=== PATIENT | female | born 1985 | race Caucasian/White ===

== ENCOUNTER → 2018-09-19 | Outpatient (CLI) | payer BC ==
--- NOTE | 2018-09-19 14:55 | Diagnostic Imaging Report ---
INDICATION: survey. TECHNIQUE: Multiple real-time grayscale images were obtained over the gravid uterus. COMPARISON: None. FINDINGS: There is a single live fetus in a cephalic presentation. heart rate was recorded at 139 beats per minute. Placenta is posterior. The amniotic fluid volume is normal. Cervical length is approximately 4.4 cm. survey demonstrates kidneys, bladder and stomach to be unremarkable. The brain is unremarkable. There is a four-chamber heart. There is a three-vessel cord with normal insertion. The spine is unremarkable. Biometrical measurements are as follows: Biparietal 4.75 cm, age 20 weeks 3 days. Head circumference 17.84 cm, age 20 weeks 3 days. Abdominal circumference 14.68 cm, age 20 weeks 0 days. Femur length 3.16 cm, age 19 weeks 6 days. Sonographic estimate age: 20 weeks 2 days. Sonographic estimated date of delivery: 02/04/2019. Estimated Weight: 323 gm (+/- 47 gm). LMP percentile: 13%. heart rate: 139 beats per minute. number: 1 of 1. IMPRESSION: Single live IUP 20 weeks 2 days gestational age. Estimated date of confinement sonographically 02/04/2019. Dictated by: Dictated on workstation # [id number]
== END ==
LOC: RAD 13:19
PROVIDERS: ATTEND Obstetrics & Gynecology
DX: Z36.89 Encounter for other specified antenatal screening (principal); Z3A.20 20 weeks gestation of pregnancy
CPT/HCPCS: 76805

== ENCOUNTER 2018-12-26 07:35 | Inpatient (IN) | payer BC ==
[2018-12-26] VITALS (23 sets, daily range): BP systolic 116–148; BP diastolic 57–96
--- NOTE | 2018-12-26 07:40 | NUR ---
DIGNA OLIVARES presented to unit via ambulation from ED, accompanied by s/o, with c/o ANTEPARTUM BLEEDING, LABOR. DIGNA OLIVARES weighed, gowned, voided, and to bed. EFHM and TOCO applied, VS taken. DIGNA OLIVARES oriented to bed controls, call light, TV, heat, and A/C controls.
[2018-12-26] MEDS ORDERED: LACTATED RINGERS 500 ML IV SCH (09:07)
[2018-12-26] MEDS ORDERED: NIFEdipine 10 MG CAPS (WOMEN'S SERVICES ONLY!!!) PO NR (09:15)
--- NOTE | 2018-12-26 09:27 | History & Physical-OB ---
OB - Chief Complaint & HPI Date/Time Date of Admission: Date of Admission: Date seen by a Provider: Dec 26, 2018 Time Seen by a Provider: 08:45 Chief Complaint/History OB-Reason for Admission/Chief: third trimester bleeding Hx : 1 Hx Para: 0 Gestational Age in Weeks: 34 Gestational Age in Days: 5 Other reason for admission: Presented with complaint of vaginal bleeding. at 34 5/7 weeks with c omplaints of spontaneous, painless bleeding. She has passes small clots, no leakage of fluid. On admission she was noted to be lilliam every 2-5 minutes. She was examined and found to have batsheva blood in the vaginal vault and cervix is dilated. Bedside US shows no evidence of previa. And she is lilliam regularly, though they are not painful. TAMERA is normal (no ROM). she is admitted for tocolysis due to labor and third trimester bleeding. Will start procardia for tocolysis. Betamethasone for lung maturity and ampicillin for GBS prophylaxis. Admission Nurse Assessment Rev: Yes Allergies and Home Medications Allergies Coded Allergies: No Known Drug Allergies (Unverified , 12/26/18) Home Medications Acetaminophen 500 Mg Tablet, 1,000 MG PO Q8HR Prescribed by: ASHLEY DIAZ on 01/11/19 0955 Ibuprofen 600 Mg Tablet, 600 MG PO Q6HR Prescribed by: ASHLEY DIAZ on 01/11/19 0955 Patient Home Medication List Home Medication List Reviewed: No OB - History Hx of Present Ultrasounds: Normal mid trimester US Obstetrical Complications: None Patient Past Medical History NC OB - Admission Exam Physical Exam Heart: Rhythm Normal Lungs: Clear Abdomen: Gravid Extremities: Normal Cervical Dilatation: 1cm Effacement: 75% Station: Ballotable Membranes: Intact Heart Rate: 140's Accelerations: Accelerations Present Decelerations: No Decelerations Short Term Variability: Present Automation Technologist Variability: Average (6-25) Contractions on Admission: < 5 Minutes Apart OB - Assessment/Plan/Diagnosis Assessment Assessment: IUP - , labor, vaginal bleeding Admission Dx labor third trimester bleeding due to #1. 34 5/7 weeks Tocolysis, betamethasone and ampicillin Admission Status: Inpatient Order (span 2 midnights) Reason for Inpatient Admission: labor with tocolysis ASHLEY DIAZ DO Dec 26, 2018 09:27
[2018-12-26] MEDS: AMPICILLIN FOR IV USE 2,000 MG in WATER (STERILE) FOR INJECTION 14.8 ML IV SCH ×2 (09:30→10:00)
[2018-12-26] MEDS ORDERED: BETAMETHASONE ACE/NA PHOS 6 MG/ML (CELESTONE SOLUSPAN) ONE (09:49)
[2018-12-26 09:58] LABS: BASOPHILS % (AUTO) 0 % (0-10); EOSINOPHILS # (AUTO) 0.1 10^3/uL (0.0-0.3); EOSINOPHILS % (AUTO) 1 % (0-10); HEMATOCRIT 35 % (35-52); LYMPHOCYTES # (AUTO) 1.7 X 10^3 (1.0-4.0); LYMPHOCYTES % (AUTO) 16 % (12-44); MEAN CORPUSCULAR HEMOGLOBIN 29 PG (25-34); MEAN CORPUSCULAR HGB CONC 34 G/DL (32-36); MEAN CORPUSCULAR VOLUME 86 FL (80-99); MONOCYTES # (AUTO) 0.8 X 10^3 (0.0-1.0); MONOCYTES % (AUTO) 8 % (0-12); NEUTROPHILS # (AUTO) 8.1 X 10^3 (1.8-7.8); NEUTROPHILS % (AUTO) 76 % (42-75); PLATELET COUNT 129 10^3/uL (130-400); WHITE BLOOD COUNT 10.7 10^3/uL (4.3-11.0)
[2018-12-26] MEDS: D5 LR IV SOLUTION 1,000 ML IV SCH ×2 (10:00→18:10)
--- OUTSIDE RECORDS SUMMARY | 2018-12-26 10:49 | XMS REPORT | Continuity of Care Document ---
Author Organization Unknown Address Unknown Allergies There is no data. Medications There is no data. Problems There is no data. Procedures There is no data. Results There is no data. Encounters ACCT No. Visit Date/Time Discharge Status Pt. Type Provider Facility Loc./Unit Complaint [id number] 10/24/2018 08:20:00 10/24/2018 23:59:59 [facility] Outpatient LEO MOY L[facility]
--- OUTSIDE RECORDS SUMMARY | 2018-12-26 10:49 | XMS REPORT ---
Author Author LYSSA ALEXANDER Organization [employer] Address Unknown Phone Unavailable Care Team Providers Care Building Certifier Name Role Phone LYSSA ALEXANDER CP Unavailable Allergies, Adverse Reactions, Alerts Substance Reaction Event Type N.K.D.A. Info Not Available Non Drug Allergy Problems Problem Type Condition Code Onset Dates Condition Status Assessment Sore throat 462 Active Assessment Strep pharyngitis J02.0 Active Medications Medication Code System Code Instructions Start Date End Date Status Dosage Azithromycin [facility] [address]-52 250 MG Orally Once a day Jun 11, 2015 Jun 16, 2015 2 tablets on the first day, then 1 tablet daily for 4 days Procedures Procedure Coding System Code Date Office Visit, Est Pt., Level 3 CPT-4 81398 Jun 11, 2015 DEPO MEDROL 40 MG/ML CPT-4 J1030 Jun 11, 2015 STREP A ASSAY W/OPTIC CPT-4 19066 Jun 11, 2015 ROCEPHIN 1 GM (IM) CPT-4 J0696 Jun 11, 2015 THER/PROPH/DIAG INJ, SC/IM CPT-4 62114 Jun 11, 2015 Vital Signs Date/Time: Jun 11, 2015 Temperature 98.1 F Weight 140 lbs Height 55.5 in BMI 31.95 Index Blood Pressure Diastolic 74 mmHg Blood Pressure Systolic 120 mmHg Cardiac Monitoring Heart Rate 70 bpm Results No Known Results Summary Purpose [employer] Submission
--- OUTSIDE RECORDS SUMMARY | 2018-12-26 10:49 | XMS REPORT ---
Author Author TENNILLE HOGAN Organization [facility] Address [address] [place] [address] Care Team Providers Care Order Planner Name Role Phone TENNILLE HOGAN Unavailable PROBLEMS No Known Problems ALLERGIES No Information ENCOUNTERS Encounter Location Date Diagnosis [facility] [id number] [place] [address] [id number] Jun, Encounter for immunization Z23 [facility] [id number] [place] [address] [id number] Jul, [facility] Z23 [facility] [id number] [place] [address] [id number] May, Subacute pansinusitis J01.40 and Cough R05 [facility] [id number] [place] [id number] Apr, Acute upper respiratory infection, unspecified J06.9 ; Other viral agents as the cause of diseases classified elsewhere B97.89 ; Cough R05 and Dyspnea on exertion R06.09 [facility] [id number] [place] [address] [id number] Sep, Pharyngitis, unspecified etiology J02.9 [facility] [id number] [place] [phone] Jun, Strep pharyngitis J02.0 and Sore throat 462 IMMUNIZATIONS Vaccine Route Administration Date Status FLULAVAL QUAD 0.5ML (6 MO AND UP) 2018 IM Intramuscular Jun 13, 2018 Administered SOCIAL HISTORY Never Assessed REASON FOR VISIT Flu shot STeposte [facility] PLAN OF CARE VITAL SIGNS MEDICATIONS Unknown Medications RESULTS No Results PROCEDURES Procedure Date Ordered Result Body Site FLULAVAL QUAD 0.5ML (6 MO AND UP) 2018 Jun 13, 2018 SINGLE IMMUNIZATION ADMIN Jun 13, 2018 INSTRUCTIONS MEDICATIONS ADMINISTERED No Known Medications MEDICAL (GENERAL) HISTORY Type Description Date Surgical History incision and drainage abscess--spider bite 2015
--- OUTSIDE RECORDS SUMMARY | 2018-12-26 10:49 | XMS REPORT ---
Author Author MIKAELA ASKEW Organization [facility] Address [address] [place] [address] Care Team Providers Care Water Treatment Plant Operator Name Role Phone QUINNTOSHIA MIKAELA Unavailable PROBLEMS No Known Problems ALLERGIES No Known Allergies ENCOUNTERS Encounter Location Date Diagnosis [facility] [id number] [place] [address] [id number] Jul, Encounter for immunization Z23 [facility] [id number] [place] [address] [id number] May, Subacute pansinusitis J01.40 and Cough R05 [facility] [address] [phone] Apr, Acute upper respiratory infection, unspecified J06.9 ; Other viral agents as the cause of diseases classified elsewhere B97.89 ; Cough R05 and Dyspnea on exertion R06.09 [facility] [id number] [place] [address] [phone] Sep, Pharyngitis, unspecified etiology J02.9 [facility] [id number] [place] [phone] Jun, Strep pharyngitis J02.0 and Sore throat 462 IMMUNIZATIONS No Known Immunizations SOCIAL HISTORY Never Assessed [facility] Activity Details Follow Up prn Reason: VITAL SIGNS Height 55.5 in 2017-05-10 Weight 138.2 lbs 2017-05-10 Temperature 98.2 degrees Fahrenheit 2017-05-10 Heart Rate 59 bpm 2017-05-10 Respiratory Rate 18 2017-05-10 Oximetry 100 % 2017-05-10 BMI 31.54 kg/m2 2017-05-10 Blood pressure systolic 121 mmHg 2017-05-10 Blood pressure diastolic 70 mmHg 2017-05-10 MEDICATIONS Medication Instructions Dosage Frequency Start Date End Date Duration Status Nidia Perles 100 mg Orally Three times a day prn cough 1-2 capsule as needed Apr, May, 07 days Active Flovent HFA 220 MCG/ACT Inhalation Twice a day 1 puff 12h Apr, May, 10 days Active RESULTS No Results PROCEDURES Procedure Date Ordered Result Body Site MEASURE BLOOD OXYGEN LEVEL May 10, 2017 INSTRUCTIONS MEDICATIONS ADMINISTERED No Known Medications MEDICAL (GENERAL) HISTORY Type Description Date Surgical History incision and drainage abscess--spider bite 2014
--- OUTSIDE RECORDS SUMMARY | 2018-12-26 10:49 | XMS REPORT ---
Author Author MIKAELA Sands Organization [facility] Address [address] [place] [address] Care Team Providers Care Cost Estimating Manager Name Role Phone MIKAELA Sands Unavailable PROBLEMS No Known Problems ALLERGIES No Information ENCOUNTERS Encounter Location Date Diagnosis [facility] [id number] [place] [address] [id number] Jul, Encounter for immunization Z23 [facility] [address] [id number] May, Subacute pansinusitis J01.40 and Cough R05 [facility] [place] [address] [id number] Apr, Acute upper respiratory infection, unspecified J06.9 ; Other viral agents as the cause of diseases classified elsewhere B97.89 ; Cough R05 and Dyspnea on exertion R06.09 [facility] [place] [id number] [place] [phone] Sep, Pharyngitis, unspecified etiology J02.9 [facility] [id number] [place] [phone] Jun, Strep pharyngitis J02.0 and Sore throat 462 IMMUNIZATIONS Vaccine Route Administration Date Status FLUARIX QUAD (3 AND UP) 2016 IM Intramuscular Aug 09, 2017 Administered SOCIAL HISTORY Never Assessed REASON FOR VISIT Flu Vaccine-[facility]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
--- NOTE | 2018-12-26 11:57 | NUR ---
resting quietly. cheeks and legs flushed patient reports feeling slightly shaking. s/o at bedside. efm reapplied after spontaneous void . denies further need. reviewed next scheduled dose of procardia with patient and family. verbalized understanding. vitals taken. a/ox3 continuing to monitor expectantly.
--- NOTE | 2018-12-26 13:05 | NUR ---
dr jc notified of contraction/fhr pattern , new orders received.
[2018-12-26] MEDS: NIFEdipine 10 MG CAPS (WOMEN'S SERVICES ONLY!!!) PO SCH ×3 (14:25→22:42)
[2018-12-26] MEDS: AMPICILLIN FOR IV USE 1,000 MG in WATER (STERILE) FOR INJECTION 7.4 ML IV SCH ×3 (14:25→22:42)
[2018-12-27] VITALS (13 sets, daily range): BP systolic 113–131; BP diastolic 58–71
[2018-12-27] MEDS: D5 LR IV SOLUTION 1,000 ML IV SCH ×2 (01:05→10:30)
[2018-12-27] MEDS: NIFEdipine 10 MG CAPS (WOMEN'S SERVICES ONLY!!!) PO SCH ×3 (03:07→11:45)
[2018-12-27] MEDS: AMPICILLIN FOR IV USE 1,000 MG in WATER (STERILE) FOR INJECTION 7.4 ML IV SCH ×4 (03:07→15:30)
[2018-12-27] MEDS ORDERED: BETAMETHASONE ACE/NA PHOS 6 MG/ML (CELESTONE SOLUSPAN) IM SCH (09:00)
--- NOTE | 2018-12-27 13:15 | Diagnostic Imaging Report ---
INDICATION: Bleeding. TECHNIQUE: Multiple real-time grayscale images were obtained over the gravid uterus. COMPARISON: 09/19/2018. FINDINGS: There is a single live fetus in a cephalic presentation. heart rate was recorded at 144 beats per minute. Placenta is posterior. No retroplacental fluid collection is seen. Amniotic fluid index is 8.6 cm. Biophysical profile was also performed with overall score of 6/8. 2-point deduction was given for lack of breathing movements visualized. Biometrical measurements are as follows: Biparietal 73.98 cm, age 32 weeks 1 days. Head circumference 30.34 cm, age 33 weeks 6 days. Abdominal circumference 28.88 cm, age 33 weeks 0 days. Femur length 6.16 cm, age 32 weeks 0 days. Sonographic estimate age: 32 weeks 6 days. Sonographic estimated date of delivery: 02/15/19. Estimated Weight: 2014 gm (+/- 294 gm). LMP percentile: 5%. heart rate: 144 beats per minute. number: 1 of 1. IMPRESSION: 1. Single live IUP at approximately 33 weeks gestational age showing normal interval growth when compared with prior exam. No definite complicating feature is detected. 2. Biophysical profile score is 6/8. Dictated by: Dictated on workstation # [id number]
--- NOTE | 2018-12-27 15:47 | Progress Note-Standard ---
Standard Progress Note Progress Notes/Assess & Plan Time Seen by a Provider: 14:00 Progress/Assessment & Plan Has received betamethasone x 2. Has not had further bleeding. Will plan discha rge with instructions. Contractions have stopped. Did have some redness of the lower extremities which is common with procardia. Final Diagnosis labor at 34 5/7 weeks Third trimester bleeding ASHLEY DIAZ DO Dec 27, 2018 15:47
--- NOTE | 2018-12-27 17:03 | Discharge Inst-Women's Service ---
Discharge Inst-Women's Serv Depart Medication/Instructions New, Converted or Re-Newed RX: Other (No new prescriptions) Final Diagnosis labor third trimester bleeding Consults/Follow Up Additional Follow Up: Yes (as scheduled) Activity Activity: Bedrest (modified) Driving Instructions: You May Drive NO SMOKING: NO SMOKING Nothing Inside Vagina: No Douching, No [place], No Tampons Diet Discharge Diet: No Restrictions Symptoms to Report to : Swelling Increased, Bleeding Excessive, Fever Over 101 Degrees F, Vaginal Bleeding Increase, Vaginal Discharge Foul Labor instructions given For Any Problems or Questions: Contact Your Physician Skin/Wound Care Bathing Instructions: ASHLEY Deleon DO Dec 27, 2018 17:03
--- NOTE | 2018-12-27 17:40 | NUR ---
out of WS via w/c accompanied by staff and s/o. to home self care. with d/c instructions in hand . no s/s of distress noted.
--- NOTE | 2019-01-01 11:31 | Physician Query-Final Dx ---
DEMETRIUS CHAKRABORTY 01/01/19 1131: Final Diagnosis Give Final Diagnosis Please give Final Diagnosis ASHLEY DIAZ DO 01/17/19 1711: Final Diagnosis Give Final Diagnosis 34 week gestation Third trimester bleeding labor DEMETRIUS CHAKRABORTY Jan 01, 2019 11:31 ASHLEY DIAZ DO Jan 17, 2019 17:11
== END 2018-12-27 17:41 | disposition home or self-care (01) | DRG 831 ==
LOC: WSo 07:35 → LDRP 07:36 → WSo 09:11
PROVIDERS: ADMIT Obstetrics & Gynecology; ATTEND Obstetrics & Gynecology
DX: O46.93 Antepartum hemorrhage, unspecified, third trimester (principal); O60.03 Preterm labor without delivery, third trimester; Z3A.34 34 weeks gestation of pregnancy
CPT/HCPCS: 36415; 76805; 76819; 85025; 86850; 86900; 86901

== ENCOUNTER 2019-01-09 23:18 | Inpatient (IN) | payer BC ==
[~2019-01-09] VITALS: Ht 167.6 cm; Wt 81.6 kg
--- NOTE | 2019-01-09 23:18 | NUR ---
DIGNA OLIVARES presented to unit via WC from ED, accompanied by SO , with c/o CONTRACTIONS,WATER BROKE. DIGNA OLIVARES weighed, gowned, voided, and to bed. EFHM and TOCO applied, VS taken. DIGNA OLIVARES oriented to bed controls, call light, TV, heat, and A/C controls.
[2019-01-09] MEDS ORDERED: PREN1TAB79 PO (23:20)
[2019-01-09 23:25] VITALS: BP 173/99
[2019-01-09] MEDS ORDERED: OXYTOCIN/NORMAL SALINE 500 ML IV ONE (23:29)
[2019-01-09] MEDS ORDERED: WATER (STERILE) FOR INJECTION 20 ML ONE (23:30)
[2019-01-09] MEDS ORDERED: AMPICILLIN FOR IV USE 2,000 MG VIAL ONE (23:30)
[2019-01-09] MEDS ORDERED: D5 LR IV SOLUTION 1,000 ML IV SCH (23:31)
[2019-01-09] MEDS ORDERED: AMPICILLIN FOR IV USE 2,000 MG in WATER (STERILE) FOR INJECTION 14.8 ML IV SCH (23:31)
[2019-01-09] MEDS ORDERED: LIDOCAINE/EPI 2% 1:200,00 (XYLOCAINE) 10 ML VIAL ONE (23:43)
[2019-01-09] MEDS ORDERED: LIDOCAINE/EPI 1%-1:200,000 (XYLOCAINE) 10 ML VIAL INJ ONE (23:45)
[2019-01-09] MEDS ORDERED: MINERAL OIL CONCENTRATE 99.9% 15 ML UDC TOP PRN (23:45)
--- OUTSIDE RECORDS SUMMARY | 2019-01-09 23:46 | XMS REPORT | Continuity of Care Document ---
Author Organization Unknown Address Unknown Allergies There is no data. Medications There is no data. Problems There is no data. Procedures There is no data. Results There is no data. Encounters ACCT No. Visit Date/Time Discharge Status Pt. Type Provider Facility Loc./Unit Complaint [id number] 10/24/2018 08:20:00 10/24/2018 23:59:59 [facility] Outpatient [facility]Y [facility]
[2019-01-09 23:54] LABS: BASOPHILS % (AUTO) 0 % (0-10); EOSINOPHILS # (AUTO) 0.1 10^3/uL (0.0-0.3); EOSINOPHILS % (AUTO) 1 % (0-10); HEMATOCRIT 36 % (35-52); HEMOGLOBIN 12.4 G/DL (11.5-16.0); LYMPHOCYTES # (AUTO) 2.1 X 10^3 (1.0-4.0); LYMPHOCYTES % (AUTO) 13 % (12-44); MEAN CORPUSCULAR HEMOGLOBIN 30 PG (25-34); MEAN CORPUSCULAR HGB CONC 35 G/DL (32-36); MEAN CORPUSCULAR VOLUME 85 FL (80-99); MONOCYTES # (AUTO) 1.6 X 10^3 (0.0-1.0); MONOCYTES % (AUTO) 10 % (0-12); NEUTROPHILS # (AUTO) 12.3 X 10^3 (1.8-7.8); NEUTROPHILS % (AUTO) 76 % (42-75); PLATELET COUNT 156 10^3/uL (130-400); WHITE BLOOD COUNT 16.1 10^3/uL (4.3-11.0)
[2019-01-09 23:55] VITALS: BP 160/97
[2019-01-10] VITALS (11 sets, daily range): BP systolic 126–162; BP diastolic 64–89
[2019-01-10] MEDS ORDERED: OXYTOCIN/NORMAL SALINE 500 ML IV SCH (00:46)
--- NOTE | 2019-01-10 00:53 | History & Physical-OB ---
OB - Chief Complaint & HPI Date/Time Date of Admission: Date of Admission: Jan 09, 2019 at 23:29 Date seen by a Provider: Jan 10, 2019 Time Seen by a Provider: 12:25 Chief Complaint/History OB-Reason for Admission/Chief: Rupture of Membranes Hx : 1 Hx Para: 0 Expected Date of Delivery: Feb 01, 2019 Gestational Age in Weeks: 36 Gestational Age in Days: 6 Other reason for admission: Presents with complaint of SROM at 10:44 pm. Arrived in activ labor. GBS unknown (not done yet due to history of labor and antibiotics given recently). Tocolysis at 34 5/6 weeks. Third trimester bleeding. Betamethasone given. On admission was 6 cm dilated, lilliam every 4 minutes and grossly ruptured. GBS started for unknown status. Admission Nurse Assessment Rev: Yes History of Labs O+, - VDRL NR Rub I Hep C and Hep B - HIV - GC/Ch - GBS unknown after clomid Allergies and Home Medications Allergies Coded Allergies: No Known Drug Allergies (Unverified , 12/26/18) Patient Home Medication List Home Medication List Reviewed: Yes OB - History Hx of Present Ultrasounds: Normal mid trimester US Obstetrical Complications: Other ( with third trimester bleeding.) Information Pre-Hospital Medication Admins: procardia, betamethasone and ampicillin at 34 5/7 weeks Induced Hypertension: No Maternal Gestational Diabetes: No Hemorrhage: No Obstetrical History Hx : 1 Hx Para: 0 Hx # Term Pregnancies: 0 Hx # Pregnancies: 0 Number of Living Children: 0 Hx Termination: No Hx Multiple Gestation: No Hx Ectopic : No Hx Stillbirth: No Hx Complication: No Hx Induced Hypertens: No Hx Maternal Gestational Diabet: No Hx Hemorrhage: No Patient Past Medical History NC Social History/Family History HIV/AIDS: No Recent Infectious Disease Expo: No Sexually Transmitted Disease: No Alcohol Use: Denies Use Recreational Drug Use: No Smoking Cessation: Never smoker Immunizations Hepatitis A: No Tetanus Booster (TDap): Less than 5yrs (11/22/18) Rubella: immune RPR/VDRL: Negative GBS Status: Unknown HBsAG: Negative OB - Admission Exam Physical Exam HEENT: NCAT Heart: Rhythm Normal Lungs: Clear Abdomen: Gravid Extremities: Normal Reflexes: Normal Cervical Dilatation: 6cm Effacement: 100% Station: 0 Membranes: Ruptured Amniotic Fluid: Clear Heart Rate: 130's Accelerations: Accelerations Present Decelerations: No Decelerations Short Term Variability: Present Retirement Variability: Average (6-25) Contractions on Admission: < 5 Minutes Apart Intensity: Firm Labs Laboratory Tests Test 01/09/19 23:40 Range/Units White Blood Count 16.1 H 4.3-11.0 10^3/uL Red Blood Count 4.20 L 4.35-5.85 10^6/uL Hemoglobin 12.4 11.5-16.0 G/DL Hematocrit 36 35-52 % Mean Corpuscular Volume 85 80-99 FL Mean Corpuscular Hemoglobin 30 25-34 PG Mean Corpuscular Hemoglobin Concent 35 32-36 G/DL Red Cell Distribution Width 13.0 10.0-14.5 % Platelet Count 156 130-400 10^3/uL Mean Platelet Volume 12.0 H 7.4-10.4 FL Neutrophils (%) (Auto) 76 H 42-75 % Lymphocytes (%) (Auto) 13 12-44 % Monocytes (%) (Auto) 10 0-12 % Eosinophils (%) (Auto) 1 0-10 % Basophils (%) (Auto) 0 0-10 % Neutrophils # (Auto) 12.3 H 1.8-7.8 X 10^3 Lymphocytes # (Auto) 2.1 1.0-4.0 X 10^3 Monocytes # (Auto) 1.6 H 0.0-1.0 X 10^3 Eosinophils # (Auto) 0.1 0.0-0.3 10^3/uL Basophils # (Auto) 0.0 0.0-0.1 10^3/uL OB - Assessment/Plan/Diagnosis Assessment Assessment: active labor, IUP - , labor, rupture of membranes, other (GBS unknosn) Admission Dx rupture of membranes labor GBS unknown Admission Status: Inpatient Order (span 2 midnights) Reason for Inpatient Admission: labor and rupture of membranes Plan Plan: Expectant Management (Anticipate ), Other (PEDS - [place]) ASHLEY DIAZ DO Jan 10, 2019 00:53
[2019-01-10] MEDS ORDERED: TETANUS,DIPTH,PERTUSS P/F (BOOSTRIX) 0.5 ML VIAL IM ONE (01:00)
[2019-01-10] MEDS ORDERED: MEASLES,MUMPS,RUBELLA 1 EA INJ SQ ONE (01:00)
--- NOTE | 2019-01-10 01:07 | OB Labor & Delivery Record ---
Vag Delivery Note Vag Delivery Note Date of Delivery: 01/10/19 Preoperative Diagnosis: Henny Love is a 31 /Para 1 / 0, Gestational Age 36 6/7 weeks with rupture of membranes, labor, history of third trimester bleeding and labor at 34 5/7 weeks s/p tocolysis, GBS unknown Postoperative Diagnosis: Same Surgeon: ASHLEY DIAZ Anesthesia: none Delivery Type: spontaneous Findings: Viable male infant, apgars 8/9, weight 5#9ounces Lacerations: none Intact placenta with 3 vessel cord. Nuchal cord x 1 delivered through, No body cord or shoulder dystocia Estimated Blood Loss: 150 ml Complications: None Condition: Stable Description of Procedure: The patient is a 31 /Para 1 / 0,Gestational Age 36 6/7 weeks with rupture of membranes, labor, history of third trimester bleeding and labor at 34 5/7 weeks s/p tocolysis, GBS unknown. She was admitted and informed consent was obtained. Her labor course was remarkable for precipitous delivery. She progressed to complete dilatation and began to push in the bed. She was then set up for delivery. The 's head was delivered atraumatically in the CARLENE position. The shoulders and remainder of the 's body were then delivered without difficulty. Upon delivery, the head was held below the level of the perineum and the mouth and nares were bulb suctioned. The cord was doubly clamped and cut and the infant was handed off to the pediatric staff. Baby was vigorous at delivery. An intact placenta with 3-vessel cord delivered via Kassidy and there was found to be minimal bleeding.~ Vigorous fundal massage was performed and the fundus was found to be firm. IV oxytocin was given. Examination of the vagina and perineum revealed no lacerations . Following the delivery, sponge, instrument and needle counts were correct. Mom and baby were both in stable condition in the labor suite. Vitals - Labs Labs Laboratory Tests 01/09/19 23:40: White Blood Count 16.1H, Red Blood Count 4.20L, Hemoglobin 12.4, Hematocrit 36, Mean Corpuscular Volume 85, Mean Corpuscular Hemoglobin 30, Mean Corpuscular Hemoglobin Concent 35, Red Cell Distribution Width 13.0, Platelet Count 156, Mean Platelet Volume 12.0H, Neutrophils (%) (Auto) 76H, Lymphocytes (%) (Auto) 13, Monocytes (%) (Auto) 10, Eosinophils (%) (Auto) 1, Basophils (%) (Auto) 0, Neutrophils # (Auto) 12.3H, Lymphocytes # (Auto) 2.1, Monocytes # (Auto) 1.6H, Eosinophils # (Auto) 0.1, Basophils # (Auto) 0.0 ASHLEY DIAZ DO Jan 10, 2019 01:07
[2019-01-10] MEDS: WITCH HAZEL(TUCKS) 40 EA JAR TOP PRN (02:00)
[2019-01-10] MEDS: BENZOCAINE/MENTHOL (DERMOPLAST) 56 ML CAN TP PRN (02:00)
[2019-01-10] MEDS ORDERED: IBUPROFEN 600 MG (MOTRIN) TAB PO ONE (02:49)
[2019-01-10] MEDS: IBUPROFEN 600 MG (MOTRIN) TAB PO SCH ×4 (02:58→21:43)
[2019-01-10] MEDS ORDERED: AMPICILLIN FOR IV USE 1,000 MG in WATER (STERILE) FOR INJECTION 7.4 ML IV SCH (03:45)
--- NOTE | 2019-01-10 04:30 | NUR ---
Pt up to void for second time. Pericare done per pt and clean vpad and mesh panties applied. pt to nsy with for bath.
[2019-01-10] MEDS: ACETAMINOPHEN 500 MG TAB (TYLENOL) PO SCH ×2 (05:54→15:09)
[2019-01-10] MEDS ORDERED: CATHETER FLUSH 10 ML SYR IV SCH ×2 (06:00)
--- NOTE | 2019-01-10 08:00 | NUR ---
CARING FOR INFANT IN ROOM. GOOD INTERACTION NOTED.
[2019-01-10] MEDS: DOCUSATE SODIUM 100 MG (COLACE) CAP PO SCH ×2 (09:00→21:43)
--- NOTE | 2019-01-10 09:30 | NUR ---
INFANT WHEN ENTERED ROOM. S.O. AT BEDSIDE.
[2019-01-10] MEDS: FERROUS SULF 325 MG (IRON) TAB PO SCH (09:53)
[2019-01-10] MEDS: PRENATAL VITAMIN 1 EA TAB PO SCH (09:53)
--- NOTE | 2019-01-10 12:30 | NUR ---
IN TO ASSIST PT WITH FEEDING. TO NURSERY R/T APNEA AND RESP DISTRESS SYMPTOMS.
--- NOTE | 2019-01-10 14:00 | NUR ---
PARENTS TO NURSERY TO SEE AND HOLD .
--- NOTE | 2019-01-10 17:15 | NUR ---
PT IN THE NURSERY WILL RETURN FOR VS.
--- NOTE | 2019-01-10 17:50 | NUR ---
PUMPING BREASTS. DOING WELL.
--- NOTE | 2019-01-10 23:00 | NUR ---
Pt leaving nursery after long visit, pt moving well and has no complaints at this time.
[2019-01-11] MEDS: ACETAMINOPHEN 500 MG TAB (TYLENOL) PO SCH ×3 (00:32→19:19)
[2019-01-11] MEDS: IBUPROFEN 600 MG (MOTRIN) TAB PO SCH ×3 (03:19→17:59)
[2019-01-11 03:20] VITALS: BP 138/91
[2019-01-11 05:19] LABS: BASOPHILS % (AUTO) 0 % (0-10); EOSINOPHILS # (AUTO) 0.2 10^3/uL (0.0-0.3); EOSINOPHILS % (AUTO) 2 % (0-10); HEMATOCRIT 33 % (35-52); HEMOGLOBIN 11.3 G/DL (11.5-16.0); LYMPHOCYTES # (AUTO) 2.4 X 10^3 (1.0-4.0); LYMPHOCYTES % (AUTO) 19 % (12-44); MEAN CORPUSCULAR HEMOGLOBIN 30 PG (25-34); MEAN CORPUSCULAR HGB CONC 34 G/DL (32-36); MEAN CORPUSCULAR VOLUME 87 FL (80-99); MEAN PLATELET VOLUME 11.8 FL (7.4-10.4); MONOCYTES # (AUTO) 1.2 X 10^3 (0.0-1.0); MONOCYTES % (AUTO) 9 % (0-12); NEUTROPHILS # (AUTO) 8.7 X 10^3 (1.8-7.8); NEUTROPHILS % (AUTO) 70 % (42-75); PLATELET COUNT 155 10^3/uL (130-400); RED CELL DISTRIBUTION WIDTH 13.6 % (10.0-14.5); WHITE BLOOD COUNT 12.6 10^3/uL (4.3-11.0)
--- NOTE | 2019-01-11 09:00 | NUR ---
into nursery to see . @ side. no c/o's voiced.
--- NOTE | 2019-01-11 09:53 | Postpartum Progress Note ---
Note Note Day # 1 s/p Subjective: Patient is without complaints. Ambulating, voiding. Tolerating a regular diet without nausea or vomiting. Normal lochia. Pain is well controlled with oral pain medications. breast feeding. [] Objective: 01/11/19 03:20 Temp 97.9 Pulse 62 Resp 18 B/P (MAP) 138/91 (107) O2 Delivery Room Air Laboratory Tests Test 01/11/19 05:05 Range/Units White Blood Count 12.6 H 4.3-11.0 10^3/uL Red Blood Count 3.79 L 4.35-5.85 10^6/uL Hemoglobin 11.3 L 11.5-16.0 G/DL Hematocrit 33 L 35-52 % Mean Corpuscular Volume 87 80-99 FL Mean Corpuscular Hemoglobin 30 25-34 PG Mean Corpuscular Hemoglobin Concent 34 32-36 G/DL Red Cell Distribution Width 13.6 10.0-14.5 % Platelet Count 155 130-400 10^3/uL Mean Platelet Volume 11.8 H 7.4-10.4 FL Neutrophils (%) (Auto) 70 42-75 % Lymphocytes (%) (Auto) 19 12-44 % Monocytes (%) (Auto) 9 0-12 % Eosinophils (%) (Auto) 2 0-10 % Basophils (%) (Auto) 0 0-10 % Neutrophils # (Auto) 8.7 H 1.8-7.8 X 10^3 Lymphocytes # (Auto) 2.4 1.0-4.0 X 10^3 Monocytes # (Auto) 1.2 H 0.0-1.0 X 10^3 Eosinophils # (Auto) 0.2 0.0-0.3 10^3/uL Basophils # (Auto) 0.0 0.0-0.1 10^3/uL Physical Exam: General - Alert and oriented, no apparent distress Abdomen - Soft, appropriately tender to palpation, non-distended, fundus firm at umbilicus Extremities - no edema, negative Ld's bilaterally Assessment: 1. post- day # 1, status post spontaneous vaginal delivery. (, GBS +) Recovering well, hemodynamically stable Plan: Routine care. Encourage breast feeding. Encourage ambulation. Ferrous sulfate supplementation. Plan for discharge tomorros Vitals - Labs Vital Signs - I&O Vital Signs Date Time Temp Pulse Resp B/P (MAP) Pulse Ox O2 Delivery O2 Flow Rate FiO2 01/11/19 03:20 97.9 62 18 138/91 (107) Room Air 01/10/19 21:49 98.9 71 18 141/89 (106) 98 Room Air 01/10/19 18:00 98.6 63 18 138/81 (100) 96 Room Air 01/10/19 13:15 98.5 56 18 128/64 (85) 97 Room Air Labs Laboratory Tests 01/11/19 05:05: White Blood Count 12.6H, Red Blood Count 3.79L, Hemoglobin 11.3L, Hematocrit 33L , Mean Corpuscular Volume 87, Mean Corpuscular Hemoglobin 30, Mean Corpuscular Hemoglobin Concent 34, Red Cell Distribution Width 13.6, Platelet Count 155, Mean Platelet Volume 11.8H, Neutrophils (%) (Auto) 70, Lymphocytes (%) (Auto) 19, Monocytes (%) (Auto) 9, Eosinophils (%) (Auto) 2, Basophils (%) (Auto) 0, Neutrophils # (Auto) 8.7H, Lymphocytes # (Auto) 2.4, Monocytes # (Auto) 1.2H, Eosinophils # (Auto) 0.2, Basophils # (Auto) 0.0 ASHLEY DIAZ DO Jan 11, 2019 09:53
[2019-01-11] MEDS ORDERED: IBUP-844 PO (09:55)
[2019-01-11] MEDS ORDERED: ACET-77 PO (09:55)
--- NOTE | 2019-01-11 09:56 | Discharge Inst-Women's Service ---
Discharge Inst-Women's Serv Depart Medication/Instructions New, Converted or Re-Newed RX: RX on Chart Final Diagnosis labor delivery history of labor, current Delivery at 36 weeks third trimester bleeding Vaginal delivery Consults/Follow Up Additional Follow Up: Yes (2-3 weeks and 6 weeks) Activity Activity: Activity as Tolerated Driving Instructions: You May Drive NO SMOKING: NO SMOKING Nothing Inside Vagina: No Douching, No [place], No Tampons Diet Discharge Diet: No Restrictions Symptoms to Report to : Swelling Increased, Bleeding Excessive, Pain Increased, Fever Over 101 Degrees F, Vaginal Bleeding Increase, Cramps in Feet or Legs, Vaginal Discharge Foul For Any Problems or Questions: Contact Your Physician ASHLEY DIAZ DO Jan 11, 2019 09:56
[2019-01-11 10:15] VITALS: BP 136/81
--- NOTE | 2019-01-11 10:15 | NUR ---
pt and returned to room. assessment completed, see interventions for further. scheduled medications given, see eMar for further.
[2019-01-11] MEDS: FERROUS SULF 325 MG (IRON) TAB PO SCH (10:18)
[2019-01-11] MEDS: PRENATAL VITAMIN 1 EA TAB PO SCH (10:18)
[2019-01-11] MEDS: DOCUSATE SODIUM 100 MG (COLACE) CAP PO SCH ×2 (10:18→21:03)
[2019-01-11 18:00] VITALS: BP 140/81
--- NOTE | 2019-01-11 19:12 | NUR ---
report given to JAMIE Cole.
[2019-01-12 00:45] VITALS: BP 155/90
[2019-01-12] MEDS: IBUPROFEN 600 MG (MOTRIN) TAB PO SCH ×3 (00:45→12:41)
[2019-01-12] MEDS: ACETAMINOPHEN 500 MG TAB (TYLENOL) PO SCH ×3 (00:58→19:49)
[2019-01-12 06:19] VITALS: BP 156/89
[2019-01-12 09:06] VITALS: BP 149/88
--- NOTE | 2019-01-12 09:06 | NUR ---
AM shift assessment completed and vital signs obtained, see interventions. Plan of care reviewed with patient. Patient verbalizes understanding and denies any current questions or concerns at this time. Scheduled PNV, Colace, and Iron PO given. Patient refuses Tylenol.
[2019-01-12] MEDS: DOCUSATE SODIUM 100 MG (COLACE) CAP PO SCH (09:11)
[2019-01-12] MEDS: PRENATAL VITAMIN 1 EA TAB PO SCH (09:11)
[2019-01-12] MEDS: WITCH HAZEL(TUCKS) 40 EA JAR TOP PRN (09:11)
[2019-01-12] MEDS: FERROUS SULF 325 MG (IRON) TAB PO SCH (09:11)
[2019-01-12] MEDS: BENZOCAINE/MENTHOL (DERMOPLAST) 56 ML CAN TP PRN (09:11)
--- NOTE | 2019-01-12 12:41 | NUR ---
Scheduled Motrin PO given. Patient denies any current needs or concerns. Fresh water provided.
[2019-01-12 15:39] VITALS: BP 157/89
--- NOTE | 2019-01-12 17:14 | NUR ---
Discharge instructions and medications reviewed with patient both written and verbally. Patient verbalizes understanding and questions answered. Prescriptions called to [facility] per patient's request. Patient would like to order stork meal for dinner prior to discharge. Boarder parent status reviewed with parents and door marker applied to door.
--- NOTE | 2019-01-12 19:30 | NUR ---
Patient discharged to Boarder Status.
== END 2019-01-12 19:30 | disposition home or self-care (01) | DRG 807 ==
LOC: WSo 23:18 → LDRP 23:19 → WSo 23:28 → LDRP 23:29
PROVIDERS: ADMIT Obstetrics & Gynecology; ATTEND Obstetrics & Gynecology
PROC: 10E0XZZ Delivery of Products of Conception, External Approach (ICD-10-PCS; principal; 2019-01-10)
DX: O60.14X0 Preterm labor third trimester with preterm delivery third trimester, not applicable or unspecified (principal); O62.3 Precipitate labor; O69.81X0 Labor and delivery complicated by cord around neck, without compression, not applicable or unspecified; O99.824 Streptococcus B carrier state complicating childbirth; Z37.0 Single live birth; Z3A.36 36 weeks gestation of pregnancy
CPT/HCPCS: 36415; 85025; 86850; 86900; 86901; 99212

== ENCOUNTER → 2019-03-07 | Outpatient (CLI) | payer BC ==
[~2019-03-07] MED LIST: ACET-77 PO; IBUP-844 PO; PREN1TAB79 PO
--- NOTE | 2019-03-07 18:25 | Diagnostic Imaging Report ---
PROCEDURE: US Thyroid. TECHNIQUE: Multiple real-time grayscale images were obtained of the thyroid in various projections. INDICATION: Elevated calcium. FINDINGS: No comparison available. The right lobe of the thyroid measures 4.7 x 1.7 x 1.8 cm. No nodules are seen. Echogenicity is normal. The left lobe of the thyroid measures 5.1 x 1.6 x 1.9 cm. Echogenicity is normal. No nodules are seen. The isthmus measures 2 mm. No soft tissue abnormality is seen in the neck. IMPRESSION: 1. Normal thyroid gland. Dictated by: Dictated on workstation # [id number]
== END ==
LOC: RAD 12:48
PROVIDERS: ATTEND Obstetrics & Gynecology
DX: E83.52 Hypercalcemia (principal)
CPT/HCPCS: 76536

== ENCOUNTER → 2020-10-13 | Outpatient (CLI) | payer BC ==
[~2020-10-13] MED LIST changes: -ACET-77 PO; +ACET-78 PO
--- NOTE | 2020-10-13 16:21 | Diagnostic Imaging Report ---
INDICATION: survey. TECHNIQUE: Multiple real-time grayscale images were obtained over the gravid uterus. COMPARISON: None FINDINGS: There is a single live fetus in a transverse presentation with head to maternal right. heart rate was recorded at 150 bpm. Placenta is posterior. Amniotic fluid volume is normal. Cervical length is 4.1 cm. kidneys, bladder and stomach are unremarkable. brain is unremarkable. There is a four-chamber heart. There is a three-vessel cord with normal insertion. spine is unremarkable. Biometrical measurements are as follows: Biparietal 4.75 cm, age 20 weeks 3 days. Head circumference 18.39 cm, age 20 weeks 6 days. Abdominal circumference 15.95 cm, age 21 weeks 1 days. Femur length 3.50 cm, age 21 weeks 1 days. Sonographic estimate age: 21 weeks 0 days. Sonographic estimated date of delivery: 02/23/2021. Estimated Weight: 392 gm (+/- 57 gm). LMP percentile: 14%. heart rate: 150 beats per minute. number: 1 of 1. IMPRESSION: Single live IUP 21 weeks 0 days gestational age. Estimated date of confinement sonographically is 02/23/2021. Dictated by: Dictated on workstation # [id number]
== END ==
LOC: RAD 12:57
PROVIDERS: ATTEND Obstetrics & Gynecology
DX: Z34.92 Encounter for supervision of normal pregnancy, unspecified, second trimester (principal); Z3A.21 21 weeks gestation of pregnancy
CPT/HCPCS: 76805

== ENCOUNTER 2021-01-27 19:10 | Inpatient (IN) | payer BC ==
[2021-01-27] MEDS ORDERED: D5 LR IV SOLUTION 1,000 ML IV ONE (19:28)
[2021-01-27] MEDS ORDERED: OXYTOCIN PRE-MIX DRIP 1,000 ML IV ONE (19:28)
[2021-01-27] MEDS ORDERED: MINERAL OIL CONCENTRATE 99.9% 15 ML UDC ONE (19:28)
[2021-01-27 19:30] VITALS: BP 160/97
[2021-01-27] MEDS ORDERED: D5 LR IV SOLUTION 1,000 ML IV SCH (19:30)
[2021-01-27] MEDS ORDERED: MINERAL OIL CONCENTRATE 99.9% 15 ML UDC TOP PRN (19:30)
[2021-01-27] MEDS ORDERED: LIDOCAINE/EPI 2% 1:200,00 (XYLOCAINE) 20 ML VIAL INJ PRN (19:30)
[2021-01-27 20:00] VITALS: BP 149/95
[2021-01-27 20:13] LABS: BASOPHILS % (AUTO) 0 % (0-10); EOSINOPHILS # (AUTO) 0.1 10^3/uL (0.0-0.3); EOSINOPHILS % (AUTO) 1 % (0-10); HEMATOCRIT 36 % (35-52); HEMOGLOBIN 11.9 g/dL (11.5-16.0); LYMPHOCYTES # (AUTO) 2.1 10^3/uL (1.0-4.0); LYMPHOCYTES % (AUTO) 19 % (12-44); MEAN CORPUSCULAR HEMOGLOBIN 30 pg (25-34); MEAN CORPUSCULAR HGB CONC 34 g/dL (32-36); MEAN CORPUSCULAR VOLUME 88 fL (80-99); MEAN PLATELET VOLUME 11.9 fL (9.0-12.2); MONOCYTES # (AUTO) 0.8 10^3/uL (0.0-1.0); MONOCYTES % (AUTO) 7 % (0-12); NEUTROPHILS # (AUTO) 7.9 10^3/uL (1.8-7.8); NEUTROPHILS % (AUTO) 72 % (42-75); PLATELET COUNT 162 10^3/uL (130-400); WHITE BLOOD COUNT 11.1 10^3/uL (4.3-11.0)
[2021-01-27 20:31] VITALS: BP 160/97
[2021-01-27 21:00] VITALS: BP 162/86
[2021-01-27 21:30] VITALS: BP 151/93
[2021-01-27] MEDS ORDERED: ONDANSETRON 4 MG/2 ML (SDV) Z0FRAN ONE (21:37)
[2021-01-27] MEDS ORDERED: ONDANSETRON 4 MG/2 ML (SDV) Z0FRAN IVP PRN (21:45)
[2021-01-27] MEDS ORDERED: CATHETER FLUSH 10 ML SYR IV SCH (22:00)
[2021-01-27] MEDS ORDERED: LIDOCAINE/EPI 2% 1:200,00 (XYLOCAINE) 20 ML VIAL ONE (23:56)
[2021-01-28] VITALS (12 sets, daily range): BP systolic 128–167; BP diastolic 69–91
[2021-01-28] MEDS: OXYTOCIN PRE-MIX DRIP 500 ML IV SCH ×2 (00:20→00:50)
--- NOTE | 2021-01-28 00:36 | History & Physical-OB ---
OB - Chief Complaint & HPI Date/Time Date of Admission: Date of Admission: Jan 27, 2021 at 19:18 Date seen by a Provider: Jan 28, 2021 Time Seen by a Provider: 11:58 Chief Complaint/History OB-Reason for Admission/Chief: Rupture of Membranes Hx : 2 Hx Para: 1 Expected Date of Delivery: Feb 18, 2021 Gestational Age in Weeks: 36 Gestational Age in Days: 6 Indication for induction: other (history of delivery (35-36 weeks)) Other reason for admission: ROM at 2130 Presents to hospital for ROM and labor Admission Nurse Assessment Rev: Yes History of Labs GBS - VDRL NR HIV - HBsAg - HIV - O + Other Covid vaccine Moderna completed 09/2020 Allergies and Home Medications Allergies Coded Allergies: No Known Drug Allergies (Unverified , 12/26/18) Patient Home Medication List Home Medication List Reviewed: Yes OB - History Hx of Present Ultrasounds: Normal mid trimester US Obstetrical Complications: None Medical Complications: None Information Induced Hypertension: No Maternal Gestational Diabetes: No Hemorrhage: No Obstetrical History Hx : 2 Hx Para: 1 Hx # Term Pregnancies: 0 Hx # Pregnancies: 1 Number of Living Children: 1 Hx Termination: No Hx Multiple Gestation: No Hx Stillbirth: No Hx Complication: No Hx Induced Hypertens: No Hx Maternal Gestational Diabet: No Delivery History Hx Dystocia: No Hx Forceps Assisted Delivery: No Hx Vacuum Extraction Assisted: No Hx Placenta Abnormality: No Hx Distress: No Hx Large For Gestational Age I: No Hx Small for Gestational Age I: No Hx Section: No Hx Vaginal Delivery Post C-Sec: No Patient Past Medical History NC Social History/Family History Alcohol Use: Denies Use Recreational Drug Use: No Smoking Cessation: Never smoker Immunizations Hepatitis A: Yes Hepatitis B: Yes Tetanus Booster (TDap): Less than 5yrs (12/05/2020) Rubella: immune RPR/VDRL: Negative GBS Status: Negative HBsAG: Negative OB - Admission Exam Physical Exam Vitals: Vital Signs 01/27/21 01/27/21 01/27/21 20:31 21:30 23:30 Temp 36.9 Pulse 59 Resp 18 B/P (MAP) 151/93 (112) Pulse Ox 98 O2 Delivery Room Air Heart: Rhythm Normal Lungs: Clear Abdomen: Gravid Extremities: Normal Cervical Dilatation: 9cm Effacement: 100% Station: +2 Membranes: Ruptured Amniotic Fluid: Clear Heart Rate: 140's Accelerations: Accelerations Present Decelerations: Early Decelerations Short Term Variability: Present Detention Variability: Average (6-25) Contractions on Admission: < 5 Minutes Apart Labs Laboratory Tests Test 01/27/21 20:00 Range/Units White Blood Count 11.1 H 4.3-11.0 10^3/uL Red Blood Count 4.03 3.80-5.11 10^6/uL Hemoglobin 11.9 11.5-16.0 g/dL Hematocrit 36 35-52 % Mean Corpuscular Volume 88 80-99 fL Mean Corpuscular Hemoglobin 30 25-34 pg Mean Corpuscular Hemoglobin Concent 34 32-36 g/dL Red Cell Distribution Width 12.9 10.0-14.5 % Platelet Count 162 130-400 10^3/uL Mean Platelet Volume 11.9 9.0-12.2 fL Immature Granulocyte % (Auto) 1 % Neutrophils (%) (Auto) 72 42-75 % Lymphocytes (%) (Auto) 19 12-44 % Monocytes (%) (Auto) 7 0-12 % Eosinophils (%) (Auto) 1 0-10 % Basophils (%) (Auto) 0 0-10 % Neutrophils # (Auto) 7.9 H 1.8-7.8 10^3/uL Lymphocytes # (Auto) 2.1 1.0-4.0 10^3/uL Monocytes # (Auto) 0.8 0.0-1.0 10^3/uL Eosinophils # (Auto) 0.1 0.0-0.3 10^3/uL Basophils # (Auto) 0.0 0.0-0.1 10^3/uL Immature Granulocyte # (Auto) 0.1 0.0-0.1 10^3/uL OB - Assessment/Plan/Diagnosis Assessment Assessment: active labor, IUP - , labor, rupture of membranes Admission Dx ROM in active labor Admission Status: Inpatient Order (span 2 midnights) Reason for Inpatient Admission: labor Plan Plan: Expectant Management Induction Method: other (anticipate Peds - [facility]) ASHLEY DIAZ DO Jan 28, 2021 00:36
[2021-01-28] MEDS ORDERED: TETANUS,DIPTH,PERTUSS P/F (BOOSTRIX) 0.5 ML VIAL IM ONE (00:45)
[2021-01-28] MEDS ORDERED: MEASLES,MUMPS,RUBELLA 1 EA INJ SQ ONE (00:45)
[2021-01-28] MEDS ORDERED: BENZOCAINE/MENTHOL (DERMOPLAST) 56 ML CAN TP PRN (00:45)
--- NOTE | 2021-01-28 00:46 | OB Labor & Delivery Record ---
Vag Delivery Note Vag Delivery Note Date of Delivery: 01/28/21 Preoperative Diagnosis: Henny Love is a 35 /Para 2 / 1, Gestational Age 36 6/7 weeks, ROM, labor Postoperative Diagnosis: Same Surgeon: ASHLEY DIAZ Anesthesia: none Delivery Type: spontaneous vaginal Findings: Viable female , apgars 8/9, weight 2725 grams Lacerations: 0 Intact placenta with 3 vessel cord. Nuchal cord x 1 delivered through (spontaneous propulsion), body cord or shoulder dystocia Estimated Blood Loss: 250 ml Complications: None Condition: Stable Description of Procedure: The patient is a 35 year old female who presented with ROM at 2130 and active labor. She was admitted and informed consent was obtained. Her labor course was remarkable for active labor. She progressed to complete dilatation and began to push. She was then set up for delivery. The infant's head was delivered atraumatically in the CECILE position. The shoulders and remainder of the 's body were then delivered without difficulty. Upon delivery, the head was held below the level of the perineum and the mouth and nares were bulb suctioned. The cord was doubly clamped and cut and the infant was handed off to the pediatric staff. An intact placenta with 3-vessel cord delivered and there was found to be minimal bleeding.~ Vigorous fundal massage was performed and the fundus was found to be firm. IV oxytocin was given. Examination of the vagina and perineum revealed no laceration repaired in the usual fashion with 3-0 vicryl suture. Following the delivery, sponge, instrument and needle counts were correct. Mom and baby were both in stable condition in the labor suite. Vitals - Labs Vital Signs - I&O Vital Signs Date Time Temp Pulse Resp B/P (MAP) Pulse Ox O2 Delivery O2 Flow Rate FiO2 01/27/21 23:30 59 18 98 01/27/21 23:00 59 18 98 01/27/21 22:30 61 18 98 01/27/21 22:00 65 18 97 01/27/21 21:30 36.9 56 18 151/93 (112) 98 01/27/21 21:00 56 18 162/86 (111) 98 01/27/21 20:31 36.8 60 18 0 Room Air 01/27/21 20:30 18 01/27/21 20:00 65 18 149/95 (113) 01/27/21 19:30 36.8 60 18 160/97 (118) I & O 01/28/21 07:00 Intake Total 1000 ml Balance 1000 ml Labs Laboratory Tests 01/27/21 20:00: White Blood Count 11.1H, Red Blood Count 4.03, Hemoglobin 11.9, Hematocrit 36, Mean Corpuscular Volume 88, Mean Corpuscular Hemoglobin 30, Mean Corpuscular He moglobin Concent 34, Red Cell Distribution Width 12.9, Platelet Count 162, Mean Platelet Volume 11.9, Immature Granulocyte % (Auto) 1, Neutrophils (%) (Auto) 72, Lymphocytes (%) (Auto) 19, Monocytes (%) (Auto) 7, Eosinophils (%) (Auto) 1, Basophils (%) (Auto) 0, Neutrophils # (Auto) 7.9H, Lymphocytes # (Auto) 2.1, Monocytes # (Auto) 0.8, Eosinophils # (Auto) 0.1, Basophils # (Auto) 0.0, Immature Granulocyte # (Auto) 0.1 ASHLEY DAIZ DO Jan 28, 2021 00:46
[2021-01-28] MEDS ORDERED: IBUPROFEN 600 MG (MOTRIN) TAB PO ONE (01:46)
[2021-01-28] MEDS: IBUPROFEN 600 MG (MOTRIN) TAB PO SCH ×4 (01:50→21:08)
[2021-01-28] MEDS: WITCH HAZEL(TUCKS) 40 EA JAR TOP PRN (01:51)
[2021-01-28] MEDS ORDERED: CATHETER FLUSH 10 ML SYR IV SCH (06:00)
[2021-01-28] MEDS: FERROUS SULF 325 MG (IRON) TAB PO SCH (08:58)
[2021-01-28] MEDS: ACETAMINOPHEN 500 MG TAB (TYLENOL) PO SCH ×2 (08:58→15:42)
[2021-01-28] MEDS: PRENATAL VITAMIN 1 EA TAB PO SCH (08:58)
[2021-01-28] MEDS: DOCUSATE SODIUM 100 MG (COLACE) CAP PO SCH ×2 (08:58→21:08)
[2021-01-28] MEDS ORDERED: DIBUCAINE 1% OINTMENT 30 GM TUBE TOP PRN (15:45)
[2021-01-29] MEDS: IBUPROFEN 600 MG (MOTRIN) TAB PO SCH ×3 (02:49→15:45)
[2021-01-29 02:51] VITALS: BP 138/83
[2021-01-29 06:10] LABS: BASOPHILS # (AUTO) 0.1 10^3/uL (0.0-0.1); BASOPHILS % (AUTO) 0 % (0-10); EOSINOPHILS # (AUTO) 0.2 10^3/uL (0.0-0.3); EOSINOPHILS % (AUTO) 2 % (0-10); HEMATOCRIT 34 % (35-52); HEMOGLOBIN 11.5 g/dL (11.5-16.0); LYMPHOCYTES # (AUTO) 2.9 10^3/uL (1.0-4.0); LYMPHOCYTES % (AUTO) 25 % (12-44); MEAN CORPUSCULAR HEMOGLOBIN 30 pg (25-34); MEAN CORPUSCULAR HGB CONC 33 g/dL (32-36); MEAN CORPUSCULAR VOLUME 89 fL (80-99); MEAN PLATELET VOLUME 11.6 fL (9.0-12.2); MONOCYTES # (AUTO) 0.9 10^3/uL (0.0-1.0); MONOCYTES % (AUTO) 8 % (0-12); NEUTROPHILS # (AUTO) 7.6 10^3/uL (1.8-7.8); NEUTROPHILS % (AUTO) 65 % (42-75); PLATELET COUNT 153 10^3/uL (130-400); WHITE BLOOD COUNT 11.6 10^3/uL (4.3-11.0)
[2021-01-29] MEDS: DOCUSATE SODIUM 100 MG (COLACE) CAP PO SCH (08:51)
[2021-01-29] MEDS: FERROUS SULF 325 MG (IRON) TAB PO SCH (08:51)
[2021-01-29] MEDS: ACETAMINOPHEN 500 MG TAB (TYLENOL) PO SCH ×2 (08:51→17:06)
[2021-01-29] MEDS: PRENATAL VITAMIN 1 EA TAB PO SCH (08:52)
[2021-01-29] MEDS: WITCH HAZEL(TUCKS) 40 EA JAR TOP PRN (08:55)
[2021-01-29 09:00] VITALS: BP 138/84
--- NOTE | 2021-01-29 13:07 | Postpartum Progress Note ---
Note Note Day # 1 s/p Subjective: Patient is without complaints. Ambulating, voiding. Tolerating a regular diet w ithout nausea or vomiting. Normal lochia. Pain is well controlled with oral pain medications. breast feeding. Baby on bili light and may not be discharged. Patient could stay as rooming in or be discharged. Objective: 01/29/21 01/29/21 02:51 09:00 Temp 36.8 36.4 Pulse 52 59 Resp 18 18 B/P (MAP) 138/83 (101) 138/84 (102) Pulse Ox 98 99 O2 Delivery Room Air Room Air Laboratory Tests Test 01/29/21 05:54 Range/Units White Blood Count 11.6 H 4.3-11.0 10^3/uL Red Blood Count 3.86 3.80-5.11 10^6/uL Hemoglobin 11.5 11.5-16.0 g/dL Hematocrit 34 L 35-52 % Mean Corpuscular Volume 89 80-99 fL Mean Corpuscular Hemoglobin 30 25-34 pg Mean Corpuscular Hemoglobin Concent 33 32-36 g/dL Red Cell Distribution Width 13.2 10.0-14.5 % Platelet Count 153 130-400 10^3/uL Mean Platelet Volume 11.6 9.0-12.2 fL Immature Granulocyte % (Auto) 1 % Neutrophils (%) (Auto) 65 42-75 % Lymphocytes (%) (Auto) 25 12-44 % Monocytes (%) (Auto) 8 0-12 % Eosinophils (%) (Auto) 2 0-10 % Basophils (%) (Auto) 0 0-10 % Neutrophils # (Auto) 7.6 1.8-7.8 10^3/uL Lymphocytes # (Auto) 2.9 1.0-4.0 10^3/uL Monocytes # (Auto) 0.9 0.0-1.0 10^3/uL Eosinophils # (Auto) 0.2 0.0-0.3 10^3/uL Basophils # (Auto) 0.1 0.0-0.1 10^3/uL Immature Granulocyte # (Auto) 0.1 0.0-0.1 10^3/uL Physical Exam: General - Alert and oriented, no apparent distress Abdomen - Soft, appropriately tender to palpation, non-distended, fundus firm at umbilicus Extremities - no edema, negative Ld's bilaterally Assessment: 1. post- day # 1, status post spontaneous vaginal delivery. Recovering well, hemodynamically stable Plan: Routine care. Encourage breast feeding. Encourage ambulation. Ferrous sulfate supplementation. Plan for discharge Vitals - Labs Vital Signs - I&O Vital Signs Date Time Temp Pulse Resp B/P (MAP) Pulse Ox O2 Delivery O2 Flow Rate FiO2 01/29/21 09:00 36.4 59 18 138/84 (102) 99 Room Air 01/29/21 02:51 36.8 52 18 138/83 (101) 98 Room Air 01/28/21 22:18 53 18 141/75 (97) Room Air 01/28/21 21:10 36.8 51 18 167/89 (115) 99 Room Air 01/28/21 16:00 36.6 60 18 137/80 (99) 96 Room Air Labs Laboratory Tests 01/29/21 05:54: White Blood Count 11.6H, Red Blood Count 3.86, Hemoglobin 11.5, Hematocrit 34L, Mean Corpuscular Volume 89, Mean Corpuscular Hemoglobin 30, Mean Corpuscular Hemoglobin Concent 33, Red Cell Distribution Width 13.2, Platelet Count 153, Mean Platelet Volume 11.6, Immature Granulocyte % (Auto) 1, Neutrophils (%) (Auto) 65, Lymphocytes (%) (Auto) 25, Monocytes (%) (Auto) 8, Eosinophils (%) (Auto) 2, Basophils (%) (Auto) 0, Neutrophils # (Auto) 7.6, Lymphocytes # (Auto) 2.9, Monocytes # (Auto) 0.9, Eosinophils # (Auto) 0.2, Basophils # (Auto) 0.1, Immature Granulocyte # (Auto) 0.1 ASHLEY DIAZ DO Jan 29, 2021 13:07
[2021-01-29] MEDS ORDERED: IBUP-844 PO (13:10)
[2021-01-29] MEDS ORDERED: ACET-93 PO (13:10)
--- NOTE | 2021-01-29 13:11 | Discharge Inst-Women's Service ---
Discharge Inst-Women's Serv Depart Medication/Instructions New, Converted or Re-Newed RX: Transmitted to Pharmacy Final Diagnosis labor vaginal delivery 37 weeks Problems Reviewed?: Yes Consults/Follow Up Additional Follow Up: Yes (6 weeks) Activity Activity: Activity as Tolerated Driving Instructions: You May Drive NO SMOKING: NO SMOKING Nothing Inside Vagina: No Douching, No [place] Diet Discharge Diet: No Restrictions Symptoms to Report to : Swelling Increased, Bleeding Excessive, Pain Increased, Fever Over 101 Degrees F, Vaginal Bleeding Increase, Cramps in Feet or Legs, Vaginal Discharge Foul For Any Problems or Questions: Contact Your Physician ASHLEY DIAZ DO Jan 29, 2021 13:11
[2021-01-29 14:00] VITALS: BP 132/70
[2021-01-29 17:30] VITALS: BP 132/70
== END 2021-01-29 17:30 | disposition home or self-care (01) | DRG 807 ==
LOC: WSo 19:10 → LDRP 19:11 → WSo 19:18 → LDRP 19:18
PROVIDERS: ADMIT Obstetrics & Gynecology; ATTEND Obstetrics & Gynecology
PROC: 10E0XZZ Delivery of Products of Conception, External Approach (ICD-10-PCS; principal; 2021-01-28)
DX: O42.913 Preterm premature rupture of membranes, unspecified as to length of time between rupture and onset of labor, third trimester (principal); Z37.0 Single live birth; Z3A.36 36 weeks gestation of pregnancy; O69.81X0 Labor and delivery complicated by cord around neck, without compression, not applicable or unspecified
CPT/HCPCS: 36415; 85025; 86850; 86900; 86901; 99212

== ENCOUNTER → 2022-11-17 | Outpatient (CLI) | payer BC ==
[~2022-11-17] MED LIST changes: +ACET-93 PO
--- NOTE | 2022-11-17 16:28 | Diagnostic Imaging Report ---
INDICATION: survey. TECHNIQUE: Multiple real-time grayscale images were obtained over the gravid uterus. COMPARISON: None. FINDINGS: There is a single live fetus in transverse presentation, head to maternal right. heart rate was recorded at 158 bpm. The placenta is posterior. The placental tip appears to be very close to the internal cervical os consistent with marginal versus partial placenta previa. Amniotic fluid index is normal at 15.7 cm. Cervical length is 8.4 cm. survey demonstrates kidneys, bladder and stomach to be unremarkable. brain is unremarkable. There is a four-chamber heart. There is a three-vessel cord with normal insertion. spine is unremarkable. Biometrical measurements are as follows: Biparietal 4.85 cm, age 20 weeks 5 days. Head circumference 18.06 cm, age 20 weeks 4 days. Abdominal circumference 15.68 cm, age 20 weeks 6 days. Femur length 3.17 cm, age 19 weeks 6 days. Sonographic estimate age: 20 weeks 4 days. Sonographic estimated date of delivery: 04/02/2023. Estimated Weight: 352 gm (+/- 52 gm). LMP percentile: 61%. heart rate: 158 beats per minute. number: 1 of 1. IMPRESSION: 1. Single live IUP 20 weeks 4 days gestational age. Estimated date of confinement, sonographically, is 04/02/2023. 2. Posterior placenta which appears to have the tip in a partial versus marginal previa position. Follow-up would be recommended. Dictated by: Dictated on workstation # [id number]
== END ==
LOC: RAD 15:15
PROVIDERS: ATTEND Nurse Practitioner Women's Health
DX: Z34.02 Encounter for supervision of normal first pregnancy, second trimester (principal); Z3A.20 20 weeks gestation of pregnancy
CPT/HCPCS: 76805

== ENCOUNTER → 2023-02-14 | Outpatient (CLI) | payer BC ==
[2023-02-14 12:28] LABS: URINE CREATININE FOR RATIO 35 MG/DL (30-125)
[2023-02-14 12:29] LABS: URINE PROTEIN FOR RATIO ONLY < 6 MG/DL (6-12)
== END ==
LOC: LABNPT 12:04
PROVIDERS: ATTEND Nurse Practitioner Women's Health
DX: O13.9 Gestational [pregnancy-induced] hypertension without significant proteinuria, unspecified trimester (principal); Z3A.00 Weeks of gestation of pregnancy not specified
CPT/HCPCS: 82570; 84156

== ENCOUNTER 2023-03-20 04:43 | Inpatient (IN) | payer BC ==
[~2023-03-20] VITALS: Ht 167.7 cm; Wt 72.5 kg
[2023-03-20] VITALS (27 sets, daily range): BP systolic 122–179; BP diastolic 60–101
[2023-03-20] MEDS ORDERED: LACTATED RINGERS 1,000 ML 1,000 ML IV SCH (05:30)
[2023-03-20] MEDS ORDERED: LACTATED RINGERS 1,000 ML 500 ML IV PRN (05:30)
[2023-03-20 06:06] LABS: BASOPHILS % (AUTO) 0 % (0-10); EOSINOPHILS # (AUTO) 0.1 10^3/uL (0.0-0.3); EOSINOPHILS % (AUTO) 1 % (0-10); HEMATOCRIT 37 % (35-52); HEMOGLOBIN 12.8 g/dL (11.5-16.0); LYMPHOCYTES # (AUTO) 1.6 10^3/uL (1.0-4.0); LYMPHOCYTES % (AUTO) 13 % (12-44); MEAN CORPUSCULAR HEMOGLOBIN 30 pg (25-34); MEAN CORPUSCULAR HGB CONC 34 g/dL (32-36); MEAN CORPUSCULAR VOLUME 86 fL (80-99); MONOCYTES # (AUTO) 0.8 10^3/uL (0.0-1.0); MONOCYTES % (AUTO) 7 % (0-12); NEUTROPHILS # (AUTO) 9.9 10^3/uL (1.8-7.8); NEUTROPHILS % (AUTO) 79 % (42-75); PLATELET COUNT 116 10^3/uL (130-400); WHITE BLOOD COUNT 12.5 10^3/uL (4.3-11.0)
[2023-03-20 06:08] LABS: SMEAR SCAN COMMENT YES
[2023-03-20 07:11] LABS: ALBUMIN 3.3 GM/DL (3.2-4.5); BILIRUBIN,TOTAL 0.5 MG/DL (0.1-1.0); CALCIUM 9.2 MG/DL (8.5-10.1); CREATININE SERUM 1.16 MG/DL (0.60-1.30); POTASSIUM 3.5 MMOL/L (3.6-5.0); TOTAL PROTEIN 6.7 GM/DL (6.4-8.2); URIC ACID 6.3 MG/DL (2.6-7.2)
[2023-03-20] MEDS ORDERED: OXYTOCIN DRIP PRE-MIX 500 ML IV ONE (08:49)
--- NOTE | 2023-03-20 08:58 | History & Physical-OB/GYN ---
History of Present Illness History of Present Illness Reason for visit/HPI Labor Date of Admission at 37w5d presents in labor. She is AMA and has had a slight elevated BP the last couple of weeks in the office. No signs of symptoms of preeclampsia. Mar 20, 2023 at 07:25 Date Seen by a Provider: Mar 20, 2023 Time Seen by a Provider: 08:00 Attending Physician Admitting Physician Admitting Physician: Farzaneh Bailon DO Attending Physician: Farzaneh Bailon DO Consult Allergies and Home Medications Allergies Coded Allergies: No Known Drug Allergies (Unverified , 12/26/18) Patient Home Medication List Home Medication List Reviewed: Yes Vit W-Ca,Fe,FA(<1 mg) ( Vitamins) 1 Each Tablet, 1 EACH PO, (R eported) Entered as Reported by: BETO ROTH on 01/09/192319 Last Action: Last Taken Edited Past Xpdhaml-Cijzhg-Suhosl Hx Patient Social History Marrital Status: Number of Children: 2 Number of living children: 2 Smoking Status: Never a Smoker Recent Hopitalizations: No Alcohol Use?: No Pt feels they are or have been: No Immunizations Up To Date Tetanus Booster (TDap): Less than 5yrs Seasonal Allergies Seasonal Allergies: No Surgeries No Respiratory No Cardiovascular No Neurological No Reproductive System : Yes Expected Date of Delivery: Apr 05, 2023 Hx : 3 Hx Para: 2 Hx Total # of Abortions (Spona: 0 Sexually Transmitted Disease: No HIV/AIDS: No Genitourinary No Gastrointestinal No Musculoskeletal No Endocrine History of Endocrine Disorders: No HEENT History of HEENT Disorders: No Cancer No Psychosocial History of Psychiatric Problem: No Integumentary History of Skin or Integumenta: No Blood Transfusions History of Blood Disorders: No Family Medical History Family Hx: FH: rheumatoid arthritis G8 SISTER Hypertension 19 MOTHER Review of Systems Constitutional: no symptoms reported Physical Exam Physical Exam Vital Signs Vital Signs Date Time Temp Pulse Resp B/P (MAP) Pulse Ox O2 Delivery O2 Flow Rate FiO2 03/20/23 07:08 48 18 135/77 (96) 03/20/23 06:51 50 18 140/77 (98) 03/20/23 06:38 51 18 137/73 (94) 03/20/23 06:22 50 18 160/97 (118) 03/20/23 06:09 49 18 158/99 (118) 03/20/23 05:53 53 18 146/95 (112) 03/20/23 05:39 46 18 154/89 (110) 03/20/23 05:23 51 18 150/87 (108) 03/20/23 05:10 50 18 163/92 (115) 03/20/23 05:00 36.7 60 16 98 Room Air 03/20/23 04:50 36.7 64 16 158/101 (120) 98 Room Air Capillary Refill : Less Than 3 Seconds Labs Laboratory Tests 03/20/23 05:30: Urine Protein 9, Urine Creatinine 97, Urine Protein/Creatinine Ratio 0.09 03/20/23 05:45: White Blood Count 12.5H, Red Blood Count 4.33, Hemoglobin 12.8, Hematocrit 37, Mean Corpuscular Volume 86, Mean Corpuscular Hemoglobin 30, Mean Corpuscular Hemoglobin Concent 34, Red Cell Distribution Width 13.1, Platelet Count 116L, Mean Platelet Volume 13.0H, Immature Granulocyte % (Auto) 1, Neutrophils (%) (Auto) 79H, Lymphocytes (%) (Auto) 13, Monocytes (%) (Auto) 7, Eosinophils (%) (Auto) 1, Basophils (%) (Auto) 0, Neutrophils # (Auto) 9.9H, Lymphocytes # (Auto) 1.6, Monocytes # (Auto) 0.8, Eosinophils # (Auto) 0.1, Basophils # (Auto) 0.0, Immature Granulocyte # (Auto) 0.1, Percent Immature Platelet Fraction 17.1H , Sodium Level 135, Potassium Level 3.5L, Chloride Level 108H, Carbon Dioxide Level 17L, Anion Gap 10, Blood Urea Nitrogen 18, Creatinine 1.16, Estimat Glomerular Filtration Rate 63, BUN/Creatinine Ratio 16, Glucose Level 85, Uric Acid 6.3, Calcium Level 9.2, Corrected Calcium 9.8, Total Bilirubin 0.5, Asp artate Amino Transf (AST/SGOT) 21, Alanine Aminotransferase (ALT/SGPT) 15, Alkaline Phosphatase 126, Lactate Dehydrogenase 126, Total Protein 6.7, Albumin 3.3, Syphilis Total Antibody Negative, Smear Scan YES General Appearance: No Apparent Distress Respiratory: No Respiratory Distress Cardiovascular: Regular Rate, Rhythm Abdominal: other (Gravid) Gynecology/General: No urethral discharge Extremity: No Pedal Edema Assessment/Plan Assessment and Plan IUP at 37w5d. Active labor. GBS neg. AMA. GHTN. Thrombocytopenia. Anticipate . Declines epidural. Will watch BPs. Admission Diagnosis IUP at 37w5d. Active labor. AMA. GHTN. Thrombocytopenia. Admission Status: Inpatient Order (span 2 midnights) Reason for Inpatient Admission: Labor FARZANEH BAILON DO Mar 20, 2023 08:58
--- NOTE | 2023-03-20 08:59 | OB Labor & Delivery Record ---
Vag Delivery Note Vag Delivery Note Date of Delivery: 03/20/23 Preoperative Diagnosis: Henny Love is a (37 /Para 3/2 , Gestational Age (wks)37with gHTN Postoperative Diagnosis: Same Surgeon: CARLOS BRADLEY Rn Palliative: Dr. Bailon Anesthesia: None Delivery Type: Spontaneous vaginal Findings: Viable male infant, apgars 8, 9, weight 2977 g Lacerations: periurethral, hemostatic Intact placenta with 3 vessel cord. No nuchal cord, body cord or shoulder dystocia Estimated Blood Loss: minimal Complications: None Condition: Stable Description of Procedure: The patient is a 37 year old female who presented in active labor. She was admitted and informed consent was obtained. Her labor course was uncomplicated. She progressed to complete dilatation and began to push. She was then set up for delivery. The infant's head was delivered atraumatically in the CARLENE position. The shoulders and remainder of the 's body were then delivered without difficulty. Upon delivery, the infant was vigorous and placed on maternal chest and the mouth and nares were bulb suctioned. After a delay cord was doubly clamped and cut and the infant remained on maternal chest. An intact placenta with 3-vessel cord delivered via Kassidy and there was found to be minimal bleeding.~ Vigorous fundal massage was performed and the fundus was found to be firm. IV oxytocin was given. Examination of the vagina and perineum revealed a hemostatic periurethral laceration that did not require repair. Following the repair, sponge, instrument and needle counts were correct. Mom and baby were both in stable condition in the labor suite. Vitals - Labs Vital Signs - I&O Vital Signs Date Time Temp Pulse Resp B/P (MAP) Pulse Ox O2 Delivery O2 Flow Rate FiO2 03/20/23 07:08 48 18 135/77 (96) 03/20/23 06:51 50 18 140/77 (98) 03/20/23 06:38 51 18 137/73 (94) 03/20/23 06:22 50 18 160/97 (118) 03/20/23 06:09 49 18 158/99 (118) 03/20/23 05:53 53 18 146/95 (112) 03/20/23 05:39 46 18 154/89 (110) 03/20/23 05:23 51 18 150/87 (108) 03/20/23 05:10 50 18 163/92 (115) 03/20/23 05:00 36.7 60 16 98 Room Air 03/20/23 04:50 36.7 64 16 158/101 (120) 98 Room Air Labs Laboratory Tests 03/20/23 05:30: Urine Protein 9, Urine Creatinine 97, Urine Protein/Creatinine Ratio 0.09 03/20/23 05:45: White Blood Count 12.5H, Red Blood Count 4.33, Hemoglobin 12.8, Hematocrit 37, Mean Corpuscular Volume 86, Mean Corpuscular Hemoglobin 30, Mean Corpuscular Hemoglobin Concent 34, Red Cell Distribution Width 13.1, Platelet Count 116L, Mean Platelet Volume 13.0H, Immature Granulocyte % (Auto) 1, Neutrophils (%) (Auto) 79H, Lymphocytes (%) (Auto) 13, Monocytes (%) (Auto) 7, Eosinophils (%) (Auto) 1, Basophils (%) (Auto) 0, Neutrophils # (Auto) 9.9H, Lymphocytes # (Auto) 1.6, Monocytes # (Auto) 0.8, Eosinophils # (Auto) 0.1, Basophils # (Auto) 0.0, Immature Granulocyte # (Auto) 0.1, Percent Immature Platelet Fraction 17.1H , Sodium Level 135, Potassium Level 3.5L, Chloride Level 108H, Carbon Dioxide Level 17L, Anion Gap 10, Blood Urea Nitrogen 18, Creatinine 1.16, Estimat Glome rular Filtration Rate 63, BUN/Creatinine Ratio 16, Glucose Level 85, Uric Acid 6.3, Calcium Level 9.2, Corrected Calcium 9.8, Total Bilirubin 0.5, Aspartate Amino Transf (AST/SGOT) 21, Alanine Aminotransferase (ALT/SGPT) 15, Alkaline Phosphatase 126, Lactate Dehydrogenase 126, Total Protein 6.7, Albumin 3.3, Syphilis Total Antibody Negative, Smear Scan YES CARLOS BRADLEY MD Mar 20, 2023 08:59
[2023-03-20] MEDS ORDERED: NALOXONE 0.4 MG/ML 1 ML VIAL IV PRN (09:15)
[2023-03-20] MEDS ORDERED: WITCH HAZEL(TUCKS) 40 EA JAR TOP PRN (09:15)
[2023-03-20] MEDS ORDERED: Tetanus/Diphtheria/Pertussis (Acell) ADULT Vaccine 0.5 ML IM ONE (09:15)
[2023-03-20] MEDS ORDERED: BENZOCAINE/MENTHOL (DERMOPLAST) 56 ML CAN TP PRN (09:15)
[2023-03-20] MEDS ORDERED: MEASLES, MUMPS, RUBELLA VACCINE (MMR) SQ ONE (09:15)
[2023-03-20] MEDS ORDERED: NIFEDIPINE 10 MG PO ONE (10:00)
[2023-03-20] MEDS: IBUPROFEN 800 MG TABLET PO SCH ×2 (10:13→19:35)
[2023-03-20] MEDS: ACETAMINOPHEN 500 MG TABLET PO SCH ×2 (10:13→19:35)
[2023-03-20] MEDS ORDERED: CATHETER FLUSH 10 ML SYR IV SCH (14:00)
[2023-03-20] MEDS: DOCUSATE SODIUM 100 MG CAPSULE PO SCH (19:35)
[2023-03-20] MEDS ORDERED: NIFEdipine Extended Release 30 MG TABLET PO ONE ×2 (19:45→19:48)
[2023-03-21 00:43] VITALS: BP 142/77
[2023-03-21] MEDS: ACETAMINOPHEN 500 MG TABLET PO SCH ×4 (00:44→22:29)
[2023-03-21] MEDS ORDERED: WITCH HAZEL(TUCKS) 40 EA JAR TOP PRN (02:45)
[2023-03-21] MEDS ORDERED: Tetanus/Diphtheria/Pertussis (Acell) ADULT Vaccine 0.5 ML IM ONE ×2 (02:45→03:45)
[2023-03-21] MEDS ORDERED: NALOXONE 0.4 MG/ML 1 ML VIAL IV PRN (02:45)
[2023-03-21] MEDS ORDERED: IBUPROFEN 800 MG TABLET PO SCH (02:45)
[2023-03-21] MEDS ORDERED: MEASLES, MUMPS, RUBELLA VACCINE (MMR) SQ ONE ×2 (02:45→03:45)
[2023-03-21] MEDS ORDERED: BENZOCAINE/MENTHOL (DERMOPLAST) 56 ML CAN TP PRN (02:45)
[2023-03-21] MEDS ORDERED: ACETAMINOPHEN 500 MG TABLET PO SCH (02:45)
[2023-03-21 03:54] VITALS: BP 139/91
[2023-03-21] MEDS: IBUPROFEN 800 MG TABLET PO SCH ×3 (03:55→22:28)
[2023-03-21] MEDS ORDERED: CATHETER FLUSH 10 ML SYR IV SCH (06:00)
[2023-03-21 06:14] LABS: HEMATOCRIT 35 % (35-52); MEAN CORPUSCULAR VOLUME 87 fL (80-99)
[2023-03-21 06:16] LABS: BASOPHILS # (AUTO) 0.1 10^3/uL (0.0-0.1); BASOPHILS % (AUTO) 1 % (0-10); EOSINOPHILS # (AUTO) 0.2 10^3/uL (0.0-0.3); EOSINOPHILS % (AUTO) 1 % (0-10); HEMOGLOBIN 11.8 g/dL (11.5-16.0); LYMPHOCYTES # (AUTO) 2.5 10^3/uL (1.0-4.0); LYMPHOCYTES % (AUTO) 20 % (12-44); MEAN CORPUSCULAR HEMOGLOBIN 29 pg (25-34); MEAN CORPUSCULAR HGB CONC 34 g/dL (32-36); MEAN PLATELET VOLUME 13.3 fL (9.0-12.2); MONOCYTES # (AUTO) 1.2 10^3/uL (0.0-1.0); MONOCYTES % (AUTO) 9 % (0-12); NEUTROPHILS # (AUTO) 8.7 10^3/uL (1.8-7.8); NEUTROPHILS % (AUTO) 69 % (42-75); PLATELET COUNT 119 10^3/uL (130-400); WHITE BLOOD COUNT 12.6 10^3/uL (4.3-11.0)
[2023-03-21 06:49] LABS: BILIRUBIN,TOTAL 0.4 MG/DL (0.1-1.0); CALCIUM 8.5 MG/DL (8.5-10.1); CREATININE SERUM 1.25 MG/DL (0.60-1.30); POTASSIUM 3.7 MMOL/L (3.6-5.0); TOTAL PROTEIN 5.7 GM/DL (6.4-8.2)
[2023-03-21] MEDS ORDERED: PRENATAL VITAMIN TABLET PO SCH (07:00)
[2023-03-21 08:00] VITALS: BP 140/84
--- NOTE | 2023-03-21 08:13 | Postpartum Progress Note ---
Note Note Day # 1 Subjective: Patient is without complaints. Ambulating, voiding. Tolerating a regular diet without nausea or vomiting. Normal lochia. Pain is well controlled with oral pain medications. BP elevation pp, given procardia by covering physician. Objective: Physical Exam: General - Alert and oriented, no apparent distress Abdomen - Soft, appropriately tender to palpation, non-distended, fundus firm at umbilicus Extremities - no edema, negative Ld's bilaterally Assessment: PPD 1 NVD PIH- bp labile overall well controlled Plan: Routine care. Encourage breast feeding. Encourage ambulation. Ferrous sulfate supplementation. Plan for discharge tomorrow Vitals - Labs Vital Signs - I&O Vital Signs Date Time Temp Pulse Resp B/P (MAP) Pulse Ox O2 Delivery O2 Flow Rate FiO2 03/21/23 03:54 36.1 61 18 139/91 (107) 96 Room Air 03/21/23 00:43 37.2 60 18 142/77 (98) 98 Room Air 03/20/23 21:20 133/76 (95) 03/20/23 19:33 37.2 57 18 95 Room Air 03/20/23 17:10 37.1 58 18 132/79 (96) 03/20/23 12:45 37.6 70 18 122/68 (86) 03/20/23 10:03 53 18 148/86 (106) 03/20/23 09:49 53 18 159/84 (109) 03/20/23 09:48 55 18 167/81 (109) 03/20/23 09:33 37.1 46 18 168/88 (114) 03/20/23 09:18 36.9 48 18 166/82 (110) 03/20/23 09:04 36.9 54 18 169/77 (107) 03/20/23 08:50 36.1 69 18 152/60 (90) 03/20/23 08:35 69 18 179/94 (122) 03/20/23 08:25 36.2 54 18 142/76 (98) I & O 03/21/23 07:00 Intake Total 500 ml Balance 500 ml Labs Laboratory Tests 03/21/23 05:50: White Blood Count 12.6H, Red Blood Count 4.01, Hemoglobin 11.8, Hematocrit 35, Mean Corpuscular Volume 87, Mean Corpuscular Hemoglobin 29, Mean Corpuscular Hemoglobin Concent 34, Red Cell Distribution Width 13.1, Platelet Count 119L, Mean Platelet Volume 13.3H, Immature Granulocyte % (Auto) 1, Neutrophils (%) (Auto) 69, Lymphocytes (%) (Auto) 20, Monocytes (%) (Auto) 9, Eosinophils (%) (Auto) 1, Basophils (%) (Auto) 1, Neutrophils # (Auto) 8.7H, Lymphocytes # (Auto) 2.5, Monocytes # (Auto) 1.2H, Eosinophils # (Auto) 0.2, Basophils # (Auto) 0.1, Immature Granulocyte # (Auto) 0.1, Percent Immature Platelet Fraction 15.0H, Sodium Level 137, Potassium Level 3.7, Chloride Level 109H, Ca rbon Dioxide Level 19L, Anion Gap 9, Blood Urea Nitrogen 18, Creatinine 1.25, Estimat Glomerular Filtration Rate 58, BUN/Creatinine Ratio 14, Glucose Level 81, Calcium Level 8.5, Corrected Calcium 9.3, Total Bilirubin 0.4, Aspartate Amino Transf (AST/SGOT) 21, Alanine Aminotransferase (ALT/SGPT) 11, Alkaline Phosphatase 94, Total Protein 5.7L, Albumin 3.0L JULIA SHORT DO Mar 21, 2023 08:13
[2023-03-21] MEDS: DOCUSATE SODIUM 100 MG CAPSULE PO SCH ×2 (08:56→22:28)
[2023-03-21] MEDS ORDERED: DOCUSATE SODIUM 100 MG CAPSULE PO SCH (09:00)
[2023-03-21 12:00] VITALS: BP 138/85
[2023-03-21 16:00] VITALS: BP 134/84
[2023-03-21 22:28] VITALS: BP 155/82
[2023-03-22 05:27] VITALS: BP 139/88
[2023-03-22] MEDS: ACETAMINOPHEN 500 MG TABLET PO SCH (05:27)
[2023-03-22] MEDS: IBUPROFEN 800 MG TABLET PO SCH (05:29)
--- NOTE | 2023-03-22 07:24 | Discharge Inst-Women's Service ---
Discharge Inst-Women's Serv Depart Medication/Instructions New, Converted or Re-Newed RX: Transmitted to Pharmacy Final Diagnosis PPD 2 NVD, GHTN Problems Reviewed?: Yes Consults/Follow Up Additional Follow Up: Yes Orders/Referrals Dr. Short in 7-10 days for BP check and in 6 weeks Activity Activity: Activity as Tolerated Driving Instructions: No Driving for 1 Week NO SMOKING: NO SMOKING Nothing Inside Vagina: No Douching, No [place], No Tampons Diet Discharge Diet: No Restrictions Symptoms to Report to : Bleeding Excessive, Pain Increased, Fever Over 101 Degrees F, Vaginal Bleeding Increase, Questions/Concerns For Any Problems or Questions: Contact Your Physician JULIA SHORT DO Mar 22, 2023 07:24
[2023-03-22] MEDS ORDERED: ACET-93 PO (07:25)
[2023-03-22] MEDS ORDERED: IBUP-1780 PO (07:25)
[2023-03-22] MEDS ORDERED: AMLO2.5T4 PO (07:25)
[2023-03-22] MEDS ORDERED: DOCU100C37 PO (07:25)
[2023-03-22] MEDS ORDERED: BENZ78AE5 TP (07:25)
--- NOTE | 2023-03-22 07:26 | Postpartum Progress Note ---
Note Note Day # 2 Subjective: Patient is without complaints. Ambulating, voiding. Tolerating a regular diet without nausea or vomiting. Normal lochia. Pain is well controlled with oral pain medications. Objective: Physical Exam: General - Alert and oriented, no apparent distress Abdomen - Soft, appropriately tender to palpation, non-distended, fundus firm at umbilicus Extremities - no edema, negative Ld's bilaterally Assessment: PPD 2 NVD PIH- BP continues to have labile control Plan: Routine care. Encourage breast feeding. Encourage ambulation. Ferrous sulfate supplementation. Going to continue 2.5 mg norvasc for 1 week and have her return to office for BP check Plan for discharge today Vitals - Labs Vital Signs - I&O Vital Signs Date Time Temp Pulse Resp B/P (MAP) Pulse Ox O2 Delivery O2 Flow Rate FiO2 03/22/23 05:27 36.2 52 18 139/88 (105) 97 Room Air 03/21/23 22:28 36.2 52 18 155/82 (106) 97 Room Air 03/21/23 16:00 36.9 52 18 134/84 (101) 96 Room Air 03/21/23 12:00 36.7 50 16 138/85 (102) 97 Room Air 03/21/23 08:00 36.8 68 18 140/84 (102) 98 Room Air JULIA SHORT DO Mar 22, 2023 07:26
[2023-03-22 09:35] VITALS: BP 127/81
[2023-03-22] MEDS: DOCUSATE SODIUM 100 MG CAPSULE PO SCH (09:36)
== END 2023-03-22 11:30 | disposition home or self-care (01) | DRG 806 ==
LOC: WSo 04:43 → LDRP 04:44 → WSo 07:25 → LDRP 10:15
PROVIDERS: ADMIT Obstetrics & Gynecology; ATTEND Obstetrics & Gynecology
PROC: 10E0XZZ Delivery of Products of Conception, External Approach (ICD-10-PCS; principal; 2023-03-20)
DX: O13.4 Gestational [pregnancy-induced] hypertension without significant proteinuria, complicating childbirth (principal); O99.12 Other diseases of the blood and blood-forming organs and certain disorders involving the immune mechanism complicating childbirth; Z37.0 Single live birth; D69.6 Thrombocytopenia, unspecified; Z3A.37 37 weeks gestation of pregnancy; O71.82 Other specified trauma to perineum and vulva; Z28.310 Unvaccinated for COVID-19
CPT/HCPCS: 36415; 80053; 82570; 83615; 84156; 84550; 85025; 86780; 86850; 86900; 86901; 99213